=== PATIENT | female | born 1960 | race American Indian/Alaskan Native ===

== ENCOUNTER 2019-02-22 10:29 | Outpatient (CLI) | payer OTHER ==
--- NOTE | 2019-02-22 16:07 | Vascular Lab Report ---
Bilateral STEVAN. 02/22/2019. HISTORY: Claudication. FINDINGS: Right STEVAN is 0.93. Left STEVAN is 0.95. IMPRESSION: ABIs at the lower range of normal. Signer Name: Brannon Pang MD Signed: 02/22/2019 4:03 PM Workstation Name: [id number]
== END 2019-02-22 10:30 | disposition home or self-care (01) ==
LOC: VAS 10:29
PROVIDERS: ATTEND Internal Medicine
DX: I73.9 Peripheral vascular disease, unspecified (principal)
CPT/HCPCS: 93922